=== PATIENT | male | born 1995 | race Caucasian/White ===

== ENCOUNTER 2017-09-07 07:30 | Emergency (ER) | payer OTHER ==
[2017-09-07 07:36] VITALS: BP 125/72
[2017-09-07] MEDS ORDERED: OXYCODONE-ACETAMINOPHEN 5-325 MG TABLET PO ONE (08:10)
[2017-09-07] MEDS ORDERED: LIDOCAINE 5% (700 MG) TRANSDERMAL ADH..PATCH TP ONE (08:10)
[2017-09-07] MEDS ORDERED: IBUPROFEN 800 MG TABLET PO ONE (08:10)
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
== END 2017-09-07 08:20 | disposition home or self-care (01) ==
LOC: ER 07:30 → EDBD 07:30 → ER 08:20
DX: M54.5 Low back pain (principal)
CPT/HCPCS: 99283